=== PATIENT | female | born 1995 | race Caucasian/White ===

== ENCOUNTER 2017-04-25 03:38 | Emergency (ER) | payer OTHER ==
[~2017-04-25] VITALS: Ht 157.5 cm; Wt 49.9 kg
[~2017-04-25 03:38] MED LIST: FLEXERIL10 MG PO
[2017-04-25 04:10] VITALS: BP 101/66
[2017-04-25] MEDS ORDERED: VYVANSE60 M1 PO (05:17)
--- NOTE | 2017-04-25 05:17 | ED UPPER/LOWER EXTREMITY COMPL ---
History of Present Illness General Chief Complaint: Laceration Procedure Stated Complaint: "PER PT C[place]OT [place]" Source: patient Exam Limitations: no limitations Vital Signs & Intake/Output Vital Signs & Intake/Output Vital Signs Date Time Temp Pulse Resp B/P B/P Pulse O2 O2 Flow FiO2 Mean Ox Delivery Rate 04/25 0410 98.9 92 18 101/66 98 Room Air Allergies Coded Allergies: NO KNOWN ALLERGIES (02/06/16) Reconcile Medications Cephalexin (Keflex) 500 MG CAPSULE 1 CAP PO 4 TIMES/DAY INFECTION PREVENTION Ibuprofen 600 MG TABLET 1 TAB PO TID PRN PAIN with food Lisdexamfetamine Dimesylate (Vyvanse) 60 MG CAPSULE 1 CAP PO QAM ADHD ( Reported) Triage Note: PER PT [place] ABOUT 1800 UNSURE OF LAST TETANUS LMP 2 WEEKS AGO Triage Nurses Notes Reviewed? yes Onset: Abrupt Duration: hour(s): Timing: recent history Severity: mild Pain/Injury Location: Left: 1st toe. Method of Injury: "[place] the [place]." Modifying Factors: Improves With: rest. Associated Symptoms: bleeding self resolved. : No Patient currently breastfeeds: No HPI: 21 yo woman presents with laceration on left great toe. "I was at [facility] and cut my toe on a shell." Event occured yesterday at approximately 6pm. "My family told me to get it checked out." Past History Travel History Traveled to [place] past 21 day No Medical History Any Pertinent Medical History? see below for history Neurological: NONE EENT: NONE Cardiovascular: NONE Respiratory: NONE Gastrointestinal: NONE Hepatic: NONE Renal: NONE Musculoskeletal: NONE Psychiatric: ADHD Endocrine: NONE Surgical History Surgical History: non-contributory Psychosocial History What is your primary language Palauan Tobacco Use: Current Daily Use Daily Tobacco Use Amount/Type: => 5 Cigarettes daily Family History Hx Contributory? No Review of Systems Review of Systems Constitutional: Reports: no symptoms. EENTM: Reports: no symptoms. Respiratory: Reports: no symptoms. Cardiovascular: Reports: no symptoms. Gastrointestinal/Abdominal: Reports: no symptoms. Genitourinary: Reports: no symptoms. Musculoskeletal: Reports: no symptoms. Skin: Reports: no symptoms. Neurological/Psychological: Reports: no symptoms. Hematologic/Endocrine: Reports: no symptoms. Immunological: Reports: no symptoms. All Other Systems: Reviewed and Negative Physical Exam Physical Exam General Appearance: well developed/nourished, mild distress Head: atraumatic Eyes: Bilateral: normal appearance. Ears, Nose, Throat: normal pharynx Neck: normal inspection, supple Cardiovascular/Respiratory: regular rate/rhythm Back: normal inspection Leg Left: great toe with 3cm deep laceration through dermis. no sign of infection. light touch/ROM intact. Skin: intact, normal color, warm/dry Lymphatic: no anterior cervical naty Progress Differential Diagnosis: laceration vs other. Plan of Care: Current Medications Sig/Hilda Start time Last Medication Dose Stop Time Status Admin Cephalexin 500 MG ONCE ONE 04/25 530 UNVr 04/25 (Keflex) 04/25 Lidocaine 20 ML ONCE ONE 04/25 530 UNVr (Lidocaine 1%) 04/25 531 Tetanus/Diphtheria 0.5 ML ONCE ONE 04/25 530 UNVr 04/25 Toxoids Adsorbed 04/25 531 0541 (Decavac) Departure Departure Disposition: HOME OR SELF CARE Condition: Stable Clinical Impression Primary Impression: Laceration of left great toe Referrals: JUSTIN VAZQUEZ,JOSÉ MIGUEL Azul (PCP/Family) Departure Forms: Customer Survey General Discharge Information Prescriptions: Current Visit Scripts Ibuprofen 1 TAB PO TID PRN PAIN #30 TAB with food Cephalexin (Keflex) 1 CAP PO 4 TIMES/DAY #30 CAP Comments gave abx prophylaxis and dt due to wound contamination. Procedures Laceration/Wound Repair Laceration/Wound Repair: Wound Location: left great toe Wound's Depth, Shape: linear Wound Length (cm): 3 Irrigated w/ Saline (ccs): 200 Wound Repaired With: Steri-strips, Dermabond, pt declines sutures Date of Last Tetanus: 04/25/17
[2017-04-25] MEDS ORDERED: KEFLEX500 M1 PO (05:24)
[2017-04-25] MEDS ORDERED: IBUPROFEN600 M1 PO (05:24)
== END 2017-04-25 06:06 ==
LOC: ERH 03:38
DX: S91.112A Laceration without foreign body of left great toe without damage to nail, initial encounter (principal); W45.8XXA Other foreign body or object entering through skin, initial encounter; Y93.9 Activity, unspecified; Y92.832 Beach as the place of occurrence of the external cause
CPT/HCPCS: 90471; 90714